=== PATIENT | female | born 1990 | race Hispanic/Latino ===

== ENCOUNTER 2018-11-09 22:15 | Emergency (ER) | payer OTHER ==
[~2018-11-09] VITALS: Ht 170.2 cm; Wt 74.8 kg
[2018-11-09] MEDS ORDERED: HYDROCODONE/APAP 10MG-325MG TAB PO ONE (22:30)
--- NOTE | 2018-11-09 22:40 | NUR ---
RADIOLOGY AT BEDSIDE FOR X-RAYS AT THIS TIME.
--- NOTE | 2018-11-09 23:12 | NUR ---
REPORT GIVEN TO KENNETH CHOI.
--- NOTE | 2018-11-09 23:23 | Diagnostic Imaging Report ---
LEFT ANKLE - 3 Image(s) LEFT FOOT - 3 Image(s) HISTORY: Sprain ankle, fall, twisted COMPARISON: None available. FINDINGS: Sensitivity limited by portable technique. Bones: Nondisplaced spiral fracture of the distal fibular metaphysis, the medial portion extends below the level of the syndesmosis. Subtle small curvilinear density at the posterior malleolus, compatible with a small nondisplaced avulsion. Punctate avulsion adjacent to the tip of the medial malleolus. Joints: Osseous alignment is within normal limits and the joint spaces are well-maintained. Soft tissues: Lateral soft tissue swelling. Chronic appearing 3 mm ossific density adjacent to the medial aspect of the first interphalangeal joint. IMPRESSION: 1. Subtle acute trimalleolar fracture, as detailed above. 2. The ankle mortise is symmetric. Signed by: Dr. Rod Damon D.O., M.M.M. on 11/09/2018 11:19 PM
[2018-11-09] MEDS ORDERED: ULTRAM50 MG PO (23:50)
[2018-11-09] MEDS ORDERED: TYLENOL WITH C1 EACH PO (23:50)
[2018-11-10] MEDS ORDERED: MORPHINE SULFATE INJ 4 MG/ML INJ 1ML IM STA (00:53)
[2018-11-10] MEDS ORDERED: MORPHINE SULFATE INJ 4 MG/ML INJ 1ML ONE (00:54)
[2018-11-10] MEDS ORDERED: ONDANSETRON HCL 4 MG ORAL DISINTEGRATING TAB ONE (00:54)
[2018-11-10] MEDS ORDERED: MORPHINE SULFATE 2 MG/ML SYR 1ML ONE (00:55)
[2018-11-10] MEDS ORDERED: ONDANSETRON HCL 4 MG ORAL DISINTEGRATING TAB PO ONE (01:00)
[2018-11-10 01:11] VITALS: BP 117/81
== END 2018-11-10 00:55 | disposition home or self-care (01) ==
LOC: ER 22:15
DX: S82.854A Nondisplaced trimalleolar fracture of right lower leg, initial encounter for closed fracture (principal); X50.1XXA Overexertion from prolonged static or awkward postures, initial encounter; Y93.01 Activity, walking, marching and hiking; Y92.328 Other athletic field as the place of occurrence of the external cause
CPT/HCPCS: 29515; 73610; 73630; 99284; J2270 ×2; Q0162